=== PATIENT | female | born 1960 | race Caucasian/White ===

== ENCOUNTER 2021-05-31 16:07 | Emergency (ER) | payer MEDICAID, SELFPAY ==
[2021-05-31 16:23] VITALS: BP 143/84; PULSE 109; RESP 16; TEMP 36.8; O2SAT 95
--- NOTE | 2021-05-31 16:27 | W.ED.HA ---
HPI - Headache General: Chief Complaint: Headache Stated Complaint: head hurts and face hurts Time Seen by Provider: 05/31/21 16:23 History of Present Illness: HPI Narrative: 60-year-old female presents to the emergency room with a complaint of headache. She has left-sided facial pain that radiates from underneath the zygomatic arch up into the patient describes it as feeling like a spike that is someone is driving through her face. She has some mild photophobia. She is not previously had an episode like this no recent facial trauma. She was seen earlier today by midlevel in the office and sent to the emergency room with concern of a stroke. She has no focal neurologic deficits. MD elicited complaint: headache Onset (ago): hour(s) Onset description: suddenly Location: left and facial Severity: severe Quality & Timing: sharp and constant Associated symptoms: Deny chest pain, fever(s), malaise, nausea, rash or vomiting Review of Systems Const: Denies: fever(s), chills, body aches, change in appetite, fatigue or malaise ENMT: Denies: throat pain, ear or mastoid pain, nasal discharge or nasal congestion Card: Denies: chest pain, edema, dyspnea on exertion or orthopnea Resp: Denies: dyspnea, productive cough or non-productive cough GI: Denies: abdominal pain, nausea, vomiting, hematemesis, coffee ground emesis, diarrhea, constipation, bloating, hematochezia or melena : Denies: flank pain, difficulty voiding, dysuria, urinary frequency or urinary urgency Skin/Breast: Denies: rash or pruritus [facility] PFSH: Medical History (Updated 05/31/21 @ 16:41 by Thompson Harman DO) Diabetes mellitus HTN (hypertension) Hypothyroid Physical Exam Const: COMMON NORMALS: no acute distress GENERAL APPEARANCE: cooperative and comfortable ORIENTATION/CONSCIOUSNESS: Yes awake, Yes oriented to person, Yes oriented to place and Yes oriented to time HENMT: COMMON NORMALS: normocephalic, atraumatic, hearing grossly normal bilaterally, external ears normal, EAC's normal and TM's normal bilaterally HEAD & SCALP: normocephalic and atraumatic EXTERNAL EAR: Yes external ears normal EXTERNAL AUDITORY CANAL: EAC's normal TYMPANIC MEMBRANE: TM's normal bilaterally Eye: COMMON NORMALS: Equal, round and reactive pupils present, EOMs intact bilaterally, conjunctivae normal and no scleral icterus CONJUNCTIVA: Yes conjunctivae normal PUPIL: Yes Equal, round and reactive pupils present Neck/C-Spine: COMMON NORMALS: full ROM, no lymphadenopathy, supple and no JVD Lymph: LYMPHATIC: no lymphadenopathy noted and no lymphedema noted Resp: COMMON NORMALS: normal respiratory effort, No retractions, No use of accessory muscles and clear to auscultation bilaterally AUSCULTATION: clear to auscultation bilaterally Cardio: COMMON NORMALS: no JVD, regular rate, regular rhythm and No murmurs present (Cardio) RATE: regular rate RHYTHM: regular rhythm GI: COMMON NORMALS: Soft to palpation and No hepatosplenomegaly present AUSCULTATION: Yes normoactive bowel sounds PALPATION: Yes Soft to palpation, No Tenderness to palpation present (GI), No Guarding due to palpation present (GI) and Yes No hepatosplenomegaly present Extremity: COMMON NORMALS: normal to inspection, capillary refill normal, no clubbing, cyanosis or edema, no calf tenderness and no pedal edema Neuro: SENSORIUM/ORIENTATION: Yes oriented to person, Yes oriented to place and Yes oriented to time Skin: COMMON NORMALS: no rashes or lesions noted GENERAL SKIN EXAM: no rashes or lesions noted Course Vital Signs: Vital signs: Vital Signs Temperature 98.3 F 05/31/21 17:03 Pulse Rate 109 H 05/31/21 17:03 Respiratory Rate 16 05/31/21 17:03 Blood Pressure 143/84 05/31/21 17:03 Pulse Oximetry 95 05/31/21 17:03 MDM - Headache MDM Narrative: Medical decision making narrative: Patient referred here for possibility of stroke on exam NIH score is 0. Patient's history consistent with trigeminal neuralgia very classic. Will start on carbamazepine 200 mg 1 p.o. twice daily follow-up with primary care may need to have dose titrated up over time. Return if is worsening problems. Discharge Plan Discharge Patient Disposition: Home Clinical Impression: Trigeminal neuralgia Condition: Stable Prescriptions: New carbamazepine 200 mg tablet 200 mg PO BID Qty: 30 RF: 0 Discharge Orders: Discharge ED (Routine); Ordered 05/31/21 Ordered By: Thompson Harman Referrals: John Dixon FNP [Primary Care Provider] - Discharge Diet: Usual diet Discharge Activity: Increase activity as tolerated Patient Instructions: Opioid Safety Activity Restrictions/Additional Instructions: Follow-up with your doctor within the next 5 to 7 days. Coding Level of Care Code ED Binding Cutter Synthetic Cloth for Alexa Chávez Exam Comprehensive NIH stroke score NIHSS Level Of Consciousness - 1a: 0 Level Of Consciousness Questions - 1b: Both Correct Level Of Consciousness Commands - 1c: Both Correct Best Gaze - 2: Normal Visual Martinez - 3: No Visual Loss Facial Palsy - 4: Normal Motor Arm Right - 5: No Drift Motor Arm Left - 5: No Drift Motor Leg Right - 6: No Drift Motor Leg Left - 6: No Drift Limb Ataxia - 7: Absent Sensory - 8: Normal Best Language - 9: No Aphasia Dysarthia - 10: Normal Extinction And Inattention - 11: 0 Score Total Score: 0
[2021-05-31 17:03] VITALS: BP 143/84; PULSE 109; RESP 16; TEMP 36.8; O2SAT 95
[2021-05-31] MEDS: carBAMazepine 200 mg Tablet PO (17:03)
== END 2021-05-31 17:04 | disposition home or self-care (01) ==
PROVIDERS: Emergency Provider Family Medicine; PCP Nurse Practitioner Family
DX: G50.0 Trigeminal neuralgia (principal); E11.9 Type 2 diabetes mellitus without complications; I10 Essential (primary) hypertension
CPT/HCPCS: 99283